=== PATIENT | male | born 1960 ===

== ENCOUNTER 2018-10-03 00:24 | Emergency (ER) | payer BC ==
[2018-10-03 00:24] VITALS: BMI 25.5
[2018-10-03 00:44] VITALS: RESP 18; TEMP 98.7; O2SAT 97
[2018-10-03] MEDS ORDERED: DiphenhydrAMINE 50 mg/ml Inj IV STA (01:10)
[2018-10-03] MEDS ORDERED: DiphenhydrAMINE 50 mg/ml Inj ONE (01:15)
--- NOTE | 2018-10-03 01:16 | ED PDOC ---
HPI: Skin/Bite Injury Time Seen by Provider: 10/03/18 01:00 Chief Complaint (Nursing): Abnormal Skin Integrity Chief Complaint (Provider): rash History Per: Patient History/Exam Limitations: no limitations Onset/Duration Of Symptoms: Hrs Current Symptoms Are (Timing): Still Present Quality Of Symptoms: Itching Additional Complaint(s): 58 y/o male history of hypertension, type II diabetes, pityriasis rosea presents for evaluation of pruritic rash x 5 hours. Patient states he is being followed for the pityriasis rash, which has had for 6 months; states yesterday afternoon he received an injection in the office (name unknown) and then was given 6 days of Prednisone 20mg daily. Patient states itching became worse that night, noticed underlying redness to rash on upper arms, back, and chest. Patient states he took one Zyrtec and one Prednisone tablet without improvement. Denies fever, nausea/vomiting, difficulty speaking/swallowing, facial swelling, chest pain, shortness of breath, palpitations. Past Medical History Reviewed: Historical Data, Nursing Documentation, Vital Signs Vital Signs: Last Vital Signs Temp 98.7 F 10/03/18 00:40 Pulse 108 H 10/03/18 00:40 Resp 18 10/03/18 00:40 BP 216/104 H 10/03/18 00:40 Pulse Ox 97 10/03/18 00:40 - Medical History PMH: Diabetes, HTN, Hypercholesterolemia - Surgical History Surgical History: No Surg Hx - Family History Family History: States: Unknown Family Hx - Immunization History Hx Tetanus Toxoid Vaccination: Yes Hx Influenza Vaccination: Yes Hx Pneumococcal Vaccination: No - Home Medications Home Medications: Ambulatory Orders Medication Instructions Recorded Aspirin [Aspirin Chewable] 81 mg PO DAILY #30 chew 02/22/18 Carvedilol [Coreg] 25 mg PO BID #30 tab 02/22/18 Icosapent Ethyl [Vascepa] 1 gm PO BID #60 capsule 02/22/18 Insulin Glargine, Recombina 10 unit SQ DAILY #1 vial 02/22/18 [Lantus] SITagliptin [Januvia] 100 mg PO DAILY #30 tab 02/22/18 Telmisartan/Hydrochlorothiazid 1 tab PO DAILY #30 tablet 02/22/18 [Telmisartan-Hctz 80-12.5 mg Tb] amLODIPine [Norvasc] 10 mg PO BID #120 tab 02/22/18 - Allergies Allergies/Adverse Reactions: Allergies Allergy/AdvReac Type Severity Reaction Status Date / Time peanut Allergy RASH Verified 10/03/18 00:40 Review of Systems ROS Statement: Except As Marked, All Systems Reviewed And Found Negative Skin: Positive for: Rash Physical Exam - Reviewed Nursing Documentation Reviewed: Yes Vital Signs Reviewed: Yes - Physical Exam Appears: Positive for: Well, Non-toxic, Uncomfortable Head Exam: Positive for: ATRAUMATIC, NORMAL INSPECTION, NORMOCEPHALIC Skin: Positive for: Rash (diffuse oval, erythematous papules and small plaques, + underlying erythema noted to bilateral upper arms, back, upper chest, and neck in a tshirt-like distribution) ENT: Positive for: Normal ENT Inspection Cardiovascular/Chest: Positive for: Regular Rate, Rhythm Respiratory: Positive for: Normal Breath Sounds Gastrointestinal/Abdominal: Positive for: Normal Exam Back: Positive for: Normal Inspection Extremity: Positive for: Normal ROM Neurologic/Psych: Positive for: Alert, Oriented (x3) - Laboratory Results Result Diagrams: 10/03/18 01:30 10/03/18 01:30 - ECG O2 Sat by Pulse Oximetry: 97 - Progress ED Course And Treament: -IV solumedrol -IV benadryl -IV pepcid -accucheck accucheck 467; patient states he did not take his insulin tonight. Will check labs, give IV fluids -cbc -cmp -IV NS bolus Repeat accucheck 363; IV insulin given IV Lopressor given for elevated BP 4:30 Patient resting comfortably. States he is feeling better. Redness improving BP and glucose improved Patient educated on findings, discharged with instructions to continue current medications Advised to monitor glucose closer while on Prednisone Follow up Pediatric Acute Care Unit Nurse Return precautions given Disposition - Clinical Impression Clinical Impression: Pityriasis rosea, Contact dermatitis - Patient ED Disposition Is Patient to be Admitted: No Counseled Patient/Family Regarding: Studies Performed, Diagnosis, Need For Followup - Disposition Disposition: Routine/Home Disposition Time: 04:39 Condition: IMPROVED Instructions: Pityriasis Rosea, Contact Dermatitis (DC) Forms: My[employer] ([employer])
[2018-10-03] MEDS ORDERED: Sodium Chloride 0.9% 1,000 ML IV STA (01:29)
[2018-10-03 01:44] LABS: BASO % 0.1 % (0.0-2.0); HEMOGLOBIN 15.2 g/dL (12.0-18.0); LYMPH # 0.8 K/uL (1.0-4.3); LYMPH % 5.7 % (20.0-40.0); MEAN CELL VOLUME 89.1 fl (80.0-94.0); MEAN CORPUSCULAR HEMOGLOBIN 29.7 pg (27.0-31.0); MEAN CORPUSCULAR HGB CONC 33.3 g/dL (33.0-37.0); MEAN PLATELET VOLUME 9.1 fl (7.2-11.7); MONO # 0.4 K/uL (0.0-0.8); MONO % 3.3 % (0.0-10.0); NEUT # 12.1 K/uL (1.8-7.0); NEUT % 90.9 % (50.0-75.0); PLATELET COUNT 295 K/uL (130-400); RBC 5.11 Mil/uL (4.40-5.90); RED CELL DISTRIBUTION WIDTH 12.7 % (11.5-14.5); WHITE BLOOD COUNT 13.4 K/uL (4.8-10.8)
[2018-10-03 01:55] LABS: ALB/GLOB RATIO 1.3 (1.0-2.1); ALBUMIN 4.5 g/dL (3.5-5.0); ALT/SGPT 28 U/L (21-72); AST/SGOT 24 U/L (17-59); BLOOD UREA NITROGEN 19 mg/dl (9-20); CALCIUM 10.1 mg/dL (8.4-10.2); GFR NON-AFRICAN AMERICAN > 60
[2018-10-03] MEDS ORDERED: Metoprolol 1 mg/ml Inj IVP STA (03:03)
[2018-10-03] MEDS ORDERED: Insulin Regular 100 units/ml IV STA (03:17)
[2018-10-03 03:23] LABS: BANDS 2 % (0-2); GIANT PLATELETS PRESENT; LYMPHOCYTE 4 % (20-50); MONOCYTE 1 % (0-10); NEUTROPHIL 93 % (42-75); PLATELET ESTIMATE NORMAL (NORMAL); TOTAL CELLS COUNTED 100
[2018-10-03 04:32] VITALS: BP 169/94; PULSE 96
== END 2018-10-03 04:54 | disposition home or self-care (01) ==
LOC: H.ER 00:24
DX: L42 Pityriasis rosea (principal); L25.9 Unspecified contact dermatitis, unspecified cause; E11.9 Type 2 diabetes mellitus without complications; E78.00 Pure hypercholesterolemia, unspecified; I10 Essential (primary) hypertension; Z79.4 Long term (current) use of insulin
CPT/HCPCS: 80053; 82948; 85025; 96361; 96374; 96375; 99283; J1200; J2930; J7030